=== PATIENT | female | born 1995 | race Caucasian/White ===

== ENCOUNTER 2017-07-04 09:16 | Emergency (ER) | payer BC, MEDICAID ==
[~2017-07-04] VITALS: Ht 160 cm; Wt 50.0 kg
[2017-07-04 10:58] LABS: BASOPHILS % (AUTO) 0 % (0-1); EOSINOPHILS % (AUTO) 0 % (1-7); LYMPHOCYTES # (AUTO) 0.52 x10^3/uL (1-3.4); LYMPHOCYTES % (AUTO) 4 % (22-44); MD NO; MEAN CORPUSCULAR HEMOGLOBIN 33.6 pg (27.0-34.8); MEAN CORPUSCULAR HGB CONC 34.2 g/dL (32.4-35.8); MEAN CORPUSCULAR VOLUME 98.1 fL (80-100); MEAN PLATELET VOLUME 7.7 fL (7.4-10.4); MONOCYTES # (AUTO) 0.34 x10^3/uL (0.2-0.8); MONOCYTES % (AUTO) 3 % (2-9); NEUTROPHILS % (AUTO) 93 % (42-75); PLATELET COUNT 234 x10^3/uL (130-400); RED BLOOD COUNT 4.51 x10^6/uL (3.82-5.3); RED CELL DISTRIBUTION WIDTH 12.7 % (9.6-15.2)
[2017-07-04] MEDS ORDERED: SODIUM CHLORIDE 0.9% 1,000ML IVBOLUS ONE ×2 (11:00→13:00)
[2017-07-04] MEDS ORDERED: SODIUM CHLORIDE FLUSH 10ML SYR IVF ONE (11:00)
[2017-07-04] MEDS ORDERED: FAMOTIDINE 20 MG/2 ML IVP ONE (11:00)
[2017-07-04] MEDS ORDERED: ONDANSETRON ODT 4 MG PO ONE (11:00)
[2017-07-04] MEDS ORDERED: ONDANSETRON ODT 4 MG ONE (11:04)
[2017-07-04] MEDS ORDERED: FAMOTIDINE 20 MG/2 ML ONE (11:04)
[2017-07-04 11:09] LABS: ALBUMIN 4.3 g/dL (3.4-5.0); ANION GAP 9 mmol/L (5-15); CALCIUM 8.8 mg/dL (8.5-10.1); CHLORIDE 109 mmol/L (98-107)
[2017-07-04 11:28] LABS: ALANINE AMINOTRANSFERASE 28 U/L (12-78); ALKALINE PHOSPHATASE 51 U/L (45-117); BILIRUBIN,TOTAL 1.1 mg/dL (0.2-1.0); CREATININE 0.85 mg/dL (0.55-1.02); TOTAL PROTEIN 7.7 g/dL (6.4-8.2)
[2017-07-04 12:33] LABS: MICROSCOPIC INDICATED
[2017-07-04] MEDS ORDERED: METOCLOPRAMIDE 5 MG/ML, 2ML ONE (12:40)
[2017-07-04] MEDS ORDERED: METOCLOPRAMIDE 5 MG/ML, 2ML IVPush ONE (13:00)
[2017-07-04 13:27] LABS: CULTURE INDICATED? YES
[2017-07-04 15:23] VITALS: BP 113/64
== END 2017-07-04 15:26 | disposition home or self-care (01) ==
LOC: ED 10:24
DX: O21.9 Vomiting of pregnancy, unspecified (principal); O26.891 Other specified pregnancy related conditions, first trimester; E86.0 Dehydration; O99.281 Endocrine, nutritional and metabolic diseases complicating pregnancy, first trimester; O99.411 Diseases of the circulatory system complicating pregnancy, first trimester; Z3A.08 8 weeks gestation of pregnancy
CPT/HCPCS: 36415; 80053; 81001; 83690; 84702; 85025; 87086; 93005; 96361; 96374; 96375; 99285; J2765; J7030; Q0162; S0028

== ENCOUNTER 2017-08-14 05:25 | Emergency (ER) | payer MEDICAID ==
[~2017-08-14] VITALS: Ht 160 cm; Wt 53.4 kg
[2017-08-14] MEDS ORDERED: SODIUM CHLORIDE 0.9% 1,000 ML IV ONE (05:54)
[2017-08-14] MEDS ORDERED: ONDANSETRON 2MG/ML, 2ML IVPush ONE (06:00)
[2017-08-14] MEDS ORDERED: FAMOTIDINE 20 MG/2 ML IVP ONE (06:00)
[2017-08-14] MEDS ORDERED: SODIUM CHLORIDE 0.9% 1,000ML IVBOLUS ONE (06:00)
[2017-08-14] MEDS ORDERED: FAMOTIDINE 20 MG/2 ML ONE (06:07)
[2017-08-14] MEDS ORDERED: ONDANSETRON 2MG/ML, 2ML ONE (06:07)
[2017-08-14 06:12] LABS: BASOPHILS # (AUTO) 0.01 x10^3/uL (0-0.1); BASOPHILS % (AUTO) 0 % (0-1); EOSINOPHILS # (AUTO) 0.07 x10^3/uL (0-0.4); EOSINOPHILS % (AUTO) 1 % (1-7); LYMPHOCYTES # (AUTO) 0.96 x10^3/uL (1-3.4); LYMPHOCYTES % (AUTO) 8 % (22-44); MD NO; MEAN CORPUSCULAR HEMOGLOBIN 33.9 pg (27.0-34.8); MEAN CORPUSCULAR HGB CONC 34.1 g/dL (32.4-35.8); MEAN CORPUSCULAR VOLUME 99.4 fL (80-100); MEAN PLATELET VOLUME 7.9 fL (7.4-10.4); MONOCYTES # (AUTO) 0.48 x10^3/uL (0.2-0.8); MONOCYTES % (AUTO) 4 % (2-9); NEUTROPHILS # (AUTO) 11.07 x10^3/uL (1.8-6.8); NEUTROPHILS % (AUTO) 88 % (42-75); PLATELET COUNT 194 x10^3/uL (130-400); RED BLOOD COUNT 4.04 x10^6/uL (3.82-5.3); RED CELL DISTRIBUTION WIDTH 12.6 % (9.6-15.2)
[2017-08-14 06:21] LABS: ALANINE AMINOTRANSFERASE 22 U/L (12-78); ALBUMIN 3.6 g/dL (3.4-5.0); ANION GAP 10 mmol/L (5-15); CALCIUM 8.5 mg/dL (8.5-10.1); CHLORIDE 109 mmol/L (98-107); CREATININE 0.71 mg/dL (0.55-1.02)
[2017-08-14 06:23] LABS: ALKALINE PHOSPHATASE 43 U/L (45-117); BILIRUBIN,TOTAL 0.5 mg/dL (0.2-1.0); TOTAL PROTEIN 6.7 g/dL (6.4-8.2)
[2017-08-14 07:28] VITALS: BP 124/67
[2017-08-14 07:50] LABS: MICROSCOPIC AUTO
[2017-08-14 08:05] LABS: CULTURE INDICATED? YES
== END 2017-08-14 09:15 | disposition home or self-care (01) ==
LOC: ED 09:09
DX: O21.1 Hyperemesis gravidarum with metabolic disturbance (principal); O23.42 Unspecified infection of urinary tract in pregnancy, second trimester; Z3A.15 15 weeks gestation of pregnancy
CPT/HCPCS: 36415; 80053; 81001; 83690; 85025; 87086; 96361; 96374; 96375; 99285; J2405; J7030; S0028

== ENCOUNTER 2019-07-30 19:11 | Emergency (ER) | payer MEDICAID ==
[~2019-07-30] VITALS: Ht 160 cm; Wt 61.5 kg
--- NOTE | 2019-07-30 19:47 | NUR ---
PT AMBULATED BACK TO ROOM WITH A SMOOTH AND STEADY GAIT, NAD, RESP WNL, PT CURLED INTO POSITION D/T ABD DISCOMFORT. VSS. GIVEN WARM BLANKETS FOR COMFORT, CALL LIGHT ON LAP. MERVAT WALSH MD AT FOR EVAL AND DISCUSSING POC
[2019-07-30] MEDS ORDERED: MORPHINE SULFATE 4 MG/ML, 1ML ONE (19:58)
[2019-07-30] MEDS ORDERED: METOCLOPRAMIDE 5 MG/ML, 2ML ONE (19:58)
[2019-07-30] MEDS ORDERED: METOCLOPRAMIDE 5 MG/ML, 2ML IVPush ONE (20:00)
[2019-07-30] MEDS ORDERED: MORPHINE SULFATE 4 MG/ML, 1ML IVPush PRN (20:00)
[2019-07-30] MEDS ORDERED: SODIUM CHLORIDE FLUSH 10ML SYR IVF ONE (20:00)
[2019-07-30] MEDS ORDERED: SODIUM CHLORIDE 0.9% 1,000ML IVBOLUS ONE (20:00)
[2019-07-30 20:40] LABS: BASOPHILS # (AUTO) 0.03 x10^3/uL (0-0.1); BASOPHILS % (AUTO) 0 % (0-1); EOSINOPHILS % (AUTO) 0 % (1-7); LYMPHOCYTES # (AUTO) 0.48 x10^3/uL (1-3.4); LYMPHOCYTES % (AUTO) 5 % (22-44); MD NO; MEAN CORPUSCULAR HEMOGLOBIN 35.7 pg (27.0-34.8); MEAN CORPUSCULAR HGB CONC 33.9 g/dL (32.4-35.8); MEAN CORPUSCULAR VOLUME 105.3 fL (80-100); MEAN PLATELET VOLUME 7.8 fL (7.4-10.4); MONOCYTES # (AUTO) 0.64 x10^3/uL (0.2-0.8); MONOCYTES % (AUTO) 7 % (2-9); NEUTROPHILS # (AUTO) 8.64 x10^3/uL (1.8-6.8); NEUTROPHILS % (AUTO) 88 % (42-75); PLATELET COUNT 311 x10^3/uL (130-400); RED BLOOD COUNT 4.67 x10^6/uL (3.82-5.3); RED CELL DISTRIBUTION WIDTH 14.3 % (9.6-15.2)
[2019-07-30 20:47] LABS: ALANINE AMINOTRANSFERASE 26 U/L (12-78); ALBUMIN 4.4 g/dL (3.4-5.0); ANION GAP 9 mmol/L (5-15); CALCIUM 9.3 mg/dL (8.5-10.1); CHLORIDE 101 mmol/L (98-107); CREATININE 1.03 mg/dL (0.55-1.02)
[2019-07-30 20:52] LABS: ALKALINE PHOSPHATASE 65 U/L (45-117); BILIRUBIN,TOTAL 0.7 mg/dL (0.2-1.0); TOTAL PROTEIN 8.9 g/dL (6.4-8.2)
--- NOTE | 2019-07-30 21:08 | NUR ---
PT RESTING IN GURNEY, EYES CLOSED, P/W/D, NAD, RESP WNL, VSS. WCTM. WAITING FOR LAB RESULTS
[2019-07-30 21:40] VITALS: BP 95/50
--- NOTE | 2019-07-30 21:46 | NUR ---
Patient given discharge instructions and they have confirmed that they understand the instructions. Patient ambulatory with steady gait. pt states that "i called my dad for a ride". Pt P/W/D, FCS no SOB, VSS, NAD. denies additional questions or needs at this time.
== END 2019-07-30 21:49 | disposition home or self-care (01) ==
LOC: ED 20:45
DX: R11.2 Nausea with vomiting, unspecified (principal); R10.84 Generalized abdominal pain; R51 Headache; F17.200 Nicotine dependence, unspecified, uncomplicated
CPT/HCPCS: 36415; 80053; 83690; 84703; 85025; 96361; 96374; 96375; 99284; J2270; J2765; J7030

== ENCOUNTER 2019-08-23 02:01 | Inpatient (IN) | payer MEDICAID ==
[~2019-08-23] VITALS: Ht 160 cm; Wt 65.0 kg
[2019-08-23] MEDS ORDERED: ONDANSETRON ODT 4 MG ONE (03:13)
--- NOTE | 2019-08-23 03:15 | NUR ---
Zofran given in triage per protocol.
[2019-08-23] MEDS ORDERED: ONDANSETRON ODT 4 MG PO ONE (03:30)
[2019-08-23 03:56] LABS: BASOPHILS # (AUTO) 0.03 x10^3/uL (0-0.1); BASOPHILS % (AUTO) 0 % (0-1); EOSINOPHILS # (AUTO) 0.01 x10^3/uL (0-0.4); EOSINOPHILS % (AUTO) 0 % (1-7); LYMPHOCYTES % (AUTO) 8 % (22-44); MD NO; MEAN CORPUSCULAR HEMOGLOBIN 36.3 pg (27.0-34.8); MEAN CORPUSCULAR HGB CONC 34.3 g/dL (32.4-35.8); MEAN CORPUSCULAR VOLUME 105.9 fL (80-100); MEAN PLATELET VOLUME 7.4 fL (7.4-10.4); MONOCYTES # (AUTO) 0.45 x10^3/uL (0.2-0.8); MONOCYTES % (AUTO) 4 % (2-9); NEUTROPHILS # (AUTO) 9.23 x10^3/uL (1.8-6.8); NEUTROPHILS % (AUTO) 88 % (42-75); PLATELET COUNT 301 x10^3/uL (130-400); RED BLOOD COUNT 4.41 x10^6/uL (3.82-5.3)
[2019-08-23 04:04] LABS: ANION GAP 13 mmol/L (5-15); CALCIUM 8.9 mg/dL (8.5-10.1); CHLORIDE 108 mmol/L (98-107); CREATININE 0.88 mg/dL (0.55-1.02)
[2019-08-23] MEDS ORDERED: SODIUM CHLORIDE 0.9% 1,000ML IVBOLUS ONE (05:30)
[2019-08-23] MEDS ORDERED: SODIUM CHLORIDE FLUSH 10ML SYR IVF ONE (05:30)
[2019-08-23] MEDS ORDERED: MORPHINE SULFATE 4 MG/ML, 1ML IVPush ONE (06:30)
[2019-08-23] MEDS ORDERED: ONDANSETRON 2MG/ML, 2ML IVPush ONE (06:30)
[2019-08-23] MEDS ORDERED: ONDANSETRON 2MG/ML, 2ML ONE (06:33)
[2019-08-23] MEDS ORDERED: MORPHINE SULFATE 4 MG/ML, 1ML ONE ×2 (06:33→11:18)
--- NOTE | 2019-08-23 06:46 | NUR ---
PT HERE FOR N/V X 4 DAYS WITH ALL OVER ABD PAIN. PIV PLACED. FLUIDS RUNNING AND PT MEDICATED FOR PAIN. UA TAKEN TO LAB. CALL LIGHT IN REACH
[2019-08-23] MEDS ORDERED: FAMOTIDINE 20 MG/2 ML ONE (06:54)
[2019-08-23] MEDS ORDERED: MAALOX/HYOSCYAMINE/LIDOCAINE 45 ML BTL ONE (06:54)
[2019-08-23] MEDS ORDERED: MAALOX/HYOSCYAMINE/LIDOCAINE 45 ML BTL PO ONE (07:00)
[2019-08-23] MEDS ORDERED: FAMOTIDINE 20 MG/2 ML IVPush ONE (07:00)
--- NOTE | 2019-08-23 07:00 | NUR ---
PT RESTING ON GURNEY AT THIS TIME, VSS. PT MEDICATED WITH ADDITIONAL MEDICATIONS PER MAR, PT STATES SOME RELEIF FROM NAUSEA AT THIS TIME. AWAITING CT
[2019-08-23 07:04] LABS: MICROSCOPIC INDICATED
[2019-08-23] MEDS ORDERED: OMNIPAQUE 350 MG/ML, 100ML BOTTLE ONE (07:28)
[2019-08-23] MEDS ORDERED: ONDANSETRON ODT 4 MG PO PRN (09:30)
[2019-08-23] MEDS ORDERED: ONDANSETRON 2MG/ML, 2ML IVPush PRN (09:30)
--- NOTE | 2019-08-23 09:33 | NUR ---
NG TUBE PLACED, PT TOLERATED WELL. VSS. REPORT TO HIRAL PARRA
[2019-08-23] MEDS ORDERED: PROMETHAZINE 25 MG/ML, 1ML ONE (09:42)
[2019-08-23] MEDS: PROMETHAZINE 25 MG/ML, 1ML IM PRN ×2 (09:49→20:58)
--- NOTE | 2019-08-23 09:50 | NUR ---
pt in bed. ng tube placed to low cont suction. pt given im phenergan for nausea associated with ng tube.
--- NOTE | 2019-08-23 09:54 | NUR ---
pt denies hx of small bowel obstruction and states only hx is reoccuring gastritis.
[2019-08-23] MEDS: morphine SULFATE 10 MG/ML, 1ML IVPush PRN ×2 (11:24→20:58)
--- NOTE | 2019-08-23 12:20 | NUR ---
MEDICATION REQUESTED FROM PHARMACY.
[2019-08-23 13:40] VITALS: BP 160/100
[2019-08-23] MEDS: POTASSIUM CHLORIDE 20 MEQ in LACTATED RINGERS 1,000 ML IV SCH ×2 (14:26→16:13)
[2019-08-23] MEDS ORDERED: NICOTINE 21 MG/24 HR PATCH.TD24 TD ONE (15:30)
[2019-08-23] MEDS: KETOROLAC 30 MG/1 ML IV PRN (16:18)
[2019-08-23] MEDS ORDERED: MELATONIN 3 MG TABLET PO PRN (16:30)
[2019-08-23 20:07] VITALS: BP 151/84
[2019-08-24] MEDS: POTASSIUM CHLORIDE 20 MEQ in LACTATED RINGERS 1,000 ML IV SCH ×3 (00:30→14:44)
[2019-08-24 00:59] VITALS: BP 138/78
[2019-08-24] MEDS: morphine SULFATE 10 MG/ML, 1ML IVPush PRN (02:51)
[2019-08-24] MEDS: KETOROLAC 30 MG/1 ML IV PRN (02:51)
[2019-08-24 05:31] LABS: BASOPHILS # (AUTO) 0.01 x10^3/uL (0-0.1); BASOPHILS % (AUTO) 0 % (0-1); EOSINOPHILS % (AUTO) 8 % (1-7); LYMPHOCYTES # (AUTO) 0.83 x10^3/uL (1-3.4); LYMPHOCYTES % (AUTO) 16 % (22-44); MD NO; MEAN CORPUSCULAR HEMOGLOBIN 35.7 pg (27.0-34.8); MEAN CORPUSCULAR HGB CONC 33.6 g/dL (32.4-35.8); MEAN CORPUSCULAR VOLUME 106.2 fL (80-100); MEAN PLATELET VOLUME 7.7 fL (7.4-10.4); MONOCYTES # (AUTO) 0.34 x10^3/uL (0.2-0.8); MONOCYTES % (AUTO) 7 % (2-9); NEUTROPHILS # (AUTO) 3.58 x10^3/uL (1.8-6.8); NEUTROPHILS % (AUTO) 69 % (42-75); PLATELET COUNT 182 x10^3/uL (130-400); RED BLOOD COUNT 3.73 x10^6/uL (3.82-5.3); RED CELL DISTRIBUTION WIDTH 13.8 % (9.6-15.2)
[2019-08-24 05:39] LABS: ANION GAP 6 mmol/L (5-15); CALCIUM 7.8 mg/dL (8.5-10.1); CHLORIDE 110 mmol/L (98-107); CREATININE 0.77 mg/dL (0.55-1.02)
[2019-08-24 06:34] VITALS: BP 115/79
[2019-08-24] MEDS ORDERED: PROC25SU25 PR (10:45)
[2019-08-24] MEDS ORDERED: [UNRECOGNIZED DRUG - CODE] BC (10:45)
[2019-08-24 13:35] VITALS: BP 144/92
== END 2019-08-24 15:40 | disposition home or self-care (01) | DRG 812 ==
LOC: ED 06:26 → EDIP 09:37 → 4NE 13:26
PROVIDERS: ADMIT Internal Medicine; ATTEND Internal Medicine
DX: T40.7X1A Poisoning by cannabis (derivatives), accidental (unintentional), initial encounter (principal); K56.600 Partial intestinal obstruction, unspecified as to cause; E87.2 Acidosis; E86.0 Dehydration; N92.6 Irregular menstruation, unspecified; R11.2 Nausea with vomiting, unspecified; D75.89 Other specified diseases of blood and blood-forming organs; F17.210 Nicotine dependence, cigarettes, uncomplicated; Y92.89 Other specified places as the place of occurrence of the external cause; Z79.899 Other long term (current) drug therapy
CPT/HCPCS: 36415; 74021; 74177; 80048; 81001; 82607; 84703; 85025; 87086; 93005; 96361; 96374; 96375; G0378; J1885; J2405; J2550; J3480; Q0162; Q9967; J2270; J3490; J7030; J7120

== ENCOUNTER 2019-11-01 20:42 | Emergency (ER) | payer MEDICAID ==
[~2019-11-01] VITALS: Ht 160 cm; Wt 68.0 kg
[~2019-11-01 20:42] MED LIST: PROC25SU25 PR; [UNRECOGNIZED DRUG - CODE] BC
[2019-11-01] MEDS ORDERED: SODIUM CHLORIDE 0.9% 1,000ML IVBOLUS ONE (21:00)
[2019-11-01] MEDS ORDERED: METOCLOPRAMIDE 5 MG/ML, 2ML IVPush ONE (21:00)
[2019-11-01] MEDS ORDERED: METOCLOPRAMIDE 5 MG/ML, 2ML ONE (21:10)
[2019-11-01 21:32] LABS: BASOPHILS # (AUTO) 0.03 x10^3/uL (0-0.1); BASOPHILS % (AUTO) 0 % (0-1); EOSINOPHILS # (AUTO) 0.01 x10^3/uL (0-0.4); EOSINOPHILS % (AUTO) 0 % (1-7); LYMPHOCYTES # (AUTO) 0.88 x10^3/uL (1-3.4); LYMPHOCYTES % (AUTO) 9 % (22-44); MD NO; MEAN CORPUSCULAR HEMOGLOBIN 36.4 pg (27.0-34.8); MEAN CORPUSCULAR HGB CONC 33.5 g/dL (32.4-35.8); MEAN CORPUSCULAR VOLUME 108.6 fL (80-100); MEAN PLATELET VOLUME 7.1 fL (7.4-10.4); MONOCYTES # (AUTO) 0.87 x10^3/uL (0.2-0.8); MONOCYTES % (AUTO) 9 % (2-9); NEUTROPHILS # (AUTO) 8.28 x10^3/uL (1.8-6.8); NEUTROPHILS % (AUTO) 82 % (42-75); PLATELET COUNT 265 x10^3/uL (130-400); RED BLOOD COUNT 4.49 x10^6/uL (3.82-5.3); RED CELL DISTRIBUTION WIDTH 14.1 % (9.6-15.2)
[2019-11-01 21:44] LABS: ALANINE AMINOTRANSFERASE 44 U/L (12-78); ALBUMIN 4.4 g/dL (3.4-5.0); ANION GAP 8 mmol/L (5-15); CALCIUM 9.5 mg/dL (8.5-10.1); CHLORIDE 102 mmol/L (98-107); CREATININE 1.05 mg/dL (0.55-1.02)
[2019-11-01 21:49] LABS: ALKALINE PHOSPHATASE 65 U/L (45-117); BILIRUBIN,TOTAL 0.7 mg/dL (0.2-1.0); TOTAL PROTEIN 8.4 g/dL (6.4-8.2)
[2019-11-01 22:42] VITALS: BP 122/77
== END 2019-11-01 22:44 | disposition home or self-care (01) ==
LOC: ED 21:10
DX: R55 Syncope and collapse (principal); R11.2 Nausea with vomiting, unspecified; E86.0 Dehydration; F17.210 Nicotine dependence, cigarettes, uncomplicated
CPT/HCPCS: 36415; 80053; 83690; 84703; 85025; 93005; 96361; 96374; 99284; 99406; J2765; J7030

== ENCOUNTER 2020-01-09 17:38 | Emergency (ER) | payer MEDICAID ==
--- NOTE | 2020-01-09 18:12 | NUR ---
NIL X 1
--- NOTE | 2020-01-09 18:38 | NUR ---
NIL X 3
== END 2020-01-09 19:14 | disposition left against medical advice (07) ==
LOC: ED 17:45
DX: Z53.21 Procedure and treatment not carried out due to patient leaving prior to being seen by health care provider (principal)

== ENCOUNTER 2020-01-10 11:51 | Emergency (ER) | payer MEDICAID ==
[~2020-01-10] VITALS: Ht 160 cm; Wt 68.8 kg
--- NOTE | 2020-01-10 12:26 | NUR ---
PT IS CRYING IN ROOM FROM PAIN. SHE STATES THAT THE PAIN IS A BURNING IN HER STOMACH AND THAT IT COMES IN WAVES. PT COMPLAINS OF GREEN/ YELLOW VOMIT FOR THE PAST 6 DAYS AND BLACK STOOLS. HX OF ETOH "I HAVEN'T DRANK IT ABOUT 42 DAYS." PT CONNECTED TO BP AND O2 MONITORS. VSS.
[2020-01-10] MEDS ORDERED: FAMOTIDINE 20 MG/2 ML IV ONE (12:30)
[2020-01-10] MEDS ORDERED: SODIUM CHLORIDE 0.9% 1,000ML IVBOLUS ONE (12:30)
[2020-01-10] MEDS ORDERED: ONDANSETRON 2MG/ML, 2ML ONE (12:30)
[2020-01-10] MEDS ORDERED: ONDANSETRON 2MG/ML, 2ML IVPush ONE (12:30)
[2020-01-10] MEDS ORDERED: FAMOTIDINE 20 MG/2 ML ONE (12:30)
[2020-01-10 12:48] LABS: BASOPHILS % (AUTO) 0 % (0-1); EOSINOPHILS % (AUTO) 0 % (1-7); LYMPHOCYTES % (AUTO) 5 % (22-44); MEAN CORPUSCULAR HEMOGLOBIN 35.8 pg (27.0-34.8); MEAN CORPUSCULAR HGB CONC 34.2 g/dL (32.4-35.8); MEAN PLATELET VOLUME 7.7 fL (7.4-10.4); MONOCYTES % (AUTO) 6 % (2-9); NEUTROPHILS % (AUTO) 89 % (42-75); PLATELET COUNT 345 x10^3/uL (130-400); RED BLOOD COUNT 4.77 x10^6/uL (3.82-5.3); RED CELL DISTRIBUTION WIDTH 13.7 % (9.6-15.2)
[2020-01-10 12:49] LABS: MICROSCOPIC INDICATED
[2020-01-10 12:58] LABS: ALANINE AMINOTRANSFERASE 21 U/L (12-78); ALBUMIN 4.5 g/dL (3.4-5.0); ANION GAP 10 mmol/L (5-15); CALCIUM 9.5 mg/dL (8.5-10.1); CHLORIDE 98 mmol/L (98-107); CREATININE 1.02 mg/dL (0.55-1.02)
[2020-01-10 13:02] LABS: ALKALINE PHOSPHATASE 70 U/L (45-117); BILIRUBIN,TOTAL 0.4 mg/dL (0.2-1.0); TOTAL PROTEIN 8.7 g/dL (6.4-8.2)
[2020-01-10 13:18] LABS: MD SCAN
--- NOTE | 2020-01-10 13:23 | NUR ---
PT SLEEPING. STATES SOME RELEIF FROM PEPCID. ALL NEEDS MET AT THIS TIME. CHART UP FOR RECHECK.
--- NOTE | 2020-01-10 14:28 | NUR ---
PT TO IMAGING.
[2020-01-10] MEDS ORDERED: SODIUM CHLORIDE FLUSH 10ML SYR IVF ONE (14:30)
[2020-01-10 14:39] VITALS: BP 120/73
--- NOTE | 2020-01-10 15:00 | NUR ---
REPORT FROM AIDA GONSALEZ. PT RESTING IN [facility] NOTED. CHART UP FOR RECHECK.
[2020-01-10] MEDS ORDERED: PROMETHAZINE 25 MG/ML, 1ML ONE (15:23)
[2020-01-10] MEDS ORDERED: PROMETHAZINE 25 MG/ML, 1ML IM ONE (15:30)
--- NOTE | 2020-01-10 15:32 | NUR ---
PT REPORTS PAIN HAS RESOLVED, BUT SHE REMAINS NAUSEATED. PT MEDICATED PER EMAR FOR SAME. POC IS DC. IV DC'D. PT OFF MONITORING AND IS UP TO DRESS. AWAITING DC INSTRUCTIONS
--- NOTE | 2020-01-10 15:46 | NUR ---
DC EDUCATION PROVIDED, PT DEMONSTRATES UNDERSTANDING. PT AMBULATED STEADILY TO NC W RN. FRIEND TO TRANSPORT PT HOME.
== END 2020-01-10 15:47 | disposition home or self-care (01) ==
LOC: ED 12:21
DX: K52.9 Noninfective gastroenteritis and colitis, unspecified (principal); R10.33 Periumbilical pain; R11.2 Nausea with vomiting, unspecified
CPT/HCPCS: 36415; 74177; 80053; 81001; 83690; 84703; 85025; 87086; 96361; 96372; 96374; 96375; 99285; J2405; J2550; J7030